=== PATIENT | female | born 1955 | race Caucasian/White ===

== ENCOUNTER 2018-11-16 22:38 | Observation (INO) ==
[2018-11-16 23:20] LABS: Basophils # (auto) 0.04 K/uL (0-0.2); Basophils % (auto) 0.4 %; Eosinophils # (auto) 0.27 K/uL (0-0.5); Eosinophils % (auto) 2.9 %; Hematocrit (blood only) 38.7 % (37-47); Immature Granulocytes # (auto) 0.01 K/uL (0.00-0.02); Immature Granulocytes % (auto) 0.1 %; Lymphocytes # (auto) 3.51 K/uL (1.2-3.4); Lymphocytes % (auto) 38.3 %; Mean Corpuscular Hgb Conc 33.6 g/dL (32-36); Mean Corpuscular Volume 89.2 fL (80-100); Mean Platelet Volume 9.4 fL (7.4-10.4); Monocytes # (auto) 0.63 K/uL (0.11-0.59); Monocytes % (auto) 6.9 %; Neutrophils # (auto) 4.71 K/uL (1.4-6.5); Neutrophils % (auto) 51.4 %; Platelet Count 397 K/uL (130-400); RDW Coefficient of Variation 13.5 % (11.5-14.5); RDW Standard Deviation 43.9 fL (36.4-46.3); Red Blood Count 4.34 M/uL (4.2-5.4); White Blood Count 9.17 K/uL (4.8-10.8)
[2018-11-16 23:38] LABS: Alanine Aminotransferase 19 U/L (12-78); Alkaline Phosphatase 100 U/L (45-117); Aspartate Aminotransferase 13 U/L (15-37); Bilirubin,Total 0.2 mg/dl (0.2-1); Blood Urea Nitrogen 22 mg/dl (7-18); Calcium 8.8 mg/dl (8.5-10.1); Carbon Dioxide 27 mmol/L (21-32); Chloride 105 mmol/L (98-107); Creatinine Clr Calc Pharmacy 96.8 ml/min; Est GFR (African American) 111.6; Est GFR (Non-African American) 96.3; Globulin 4.1 gm/dl (2.5-4.0); Glucose 111 mg/dl (70-99); Potassium 3.3 mmol/L (3.5-5.1); Sodium 142 mmol/L (136-145); Total Protein 8.1 gm/dl (6.4-8.2); Troponin I < 0.015 ng/ml (0-0.045)
[2018-11-17] MEDS ORDERED: OPTIRAY 320 125ml IV PRN (00:13)
[2018-11-17] MEDS ORDERED: NITROGLYCERIN 2% OINTMENT 30GM TUBE EXT ONE (00:55)
--- NOTE | 2018-11-17 01:59 | Emergency Department Note ---
Entered by Lois Montana acting as a scribe for Benedicto Manzo MD History of Present Illness General Chief complaint: Chest Pain Stated complaint: CHEST PAIN/NECK PAIN Source: patient History of Present Illness Provider complaint: chest pain Onset (ago): hour(s) 6 Location: chest Radiation: non-radiation Maximum Pain Intensity: 3 Quality: + other (heaviness and pressure) Associated symptoms: + shortness of breath and + other (+neck pain, +back pain) Treatments prior to arrival: aspirin (2 baby aspirin) The patient is a 62 year old female who presents to the Emergency Room with complaints of chest discomfort that started today at 1700. She notes that it feels like heaviness and pressure in the center of her chest. She reports that the pain is non-radiating. She states that she could feel her heart beating. The patient state that she had worsening shortness of breath today. She notes that she experiences shortness of breath and chest discomfort when she is walking or going up stairs. The patient reports that she has neck and back pain that started several days ago. She notes that she has burping more. She states that she has felt more flushed and warm today. She notes that both her parents had heart attacks in their 40s. She states that she has hypertension that she takes medication for. The patient states that she took 2 baby Aspirin today. Home Medications Home Medications Medication Instructions Recorded Confirmed Type aspirin 81 mg PO DAILY 11/17/18 11/17/18 History calcium carbonate 1,200 mg PO DAILY 11/17/18 11/17/18 History cholecalciferol (vitamin D3) 1,000 unit PO DAILY 11/17/18 11/17/18 History [Vitamin D3] losartan-hydrochlorothiazide 1 tab PO DAILY 11/17/18 11/17/18 History meloxicam 15 mg PO DAILY 11/17/18 11/17/18 History omega 4-bna-tve-fish oil [Fish Oil] 1 cap PO DAILY 11/17/18 11/17/18 History Allergies Allergy/AdvReac Type Severity Reaction Status Date / Time No Known Allergies Allergy Unverified 11/17/18 01:33 Past Med/Surg History Surgical History History of Rodrigo fundoplication Family History Other Myocardial infarction Social History Preferred Language: Croatian Feels Safe at Home: Yes Smoking Status: Never smoker Review of Systems See HPI for pertinent positives & negatives. and A total of 10 systems reviewed and were otherwise negative Physical Exam Vital Signs Vital Signs - 24 hr 11/16/18 22:52 11/16/18 23:12 11/17/18 00:11 Temperature 36.6 C Temperature Source Oral Sepsis Recent Fever Within 48 Hours No Sepsis New/Unexplained Change in Mental Status No Sepsis Action Taken by Nursing No Action Required Pulse Rate 76 Pulse Rate [Apical] 67 Respiratory Rate 18 18 Blood Pressure 188/105 H Blood Pressure [Right Arm] 158/93 H Blood Pressure Mean 132 Blood Pressure Mean [Right Arm] 114 Pulse Oximetry 96 95 95 Oxygen Delivery Method Room Air Room Air Room Air 11/17/18 01:38 11/17/18 02:03 Temperature Temperature Source Sepsis Recent Fever Within 48 Hours Sepsis New/Unexplained Change in Mental Status Sepsis Action Taken by Nursing Pulse Rate Pulse Rate [Apical] 70 Respiratory Rate 18 Blood Pressure Blood Pressure [Right Arm] 121/83 Blood Pressure Mean Blood Pressure Mean [Right Arm] 95 Pulse Oximetry 95 Oxygen Delivery Method Room Air Constitutional: Vital signs reviewed. Eyes: Pupils are equal round reactive to light. Conjunctiva are noninjected. ENT: Pharynx is clear without erythema or exudate. Mucous membranes are moist. Neck supple without meningeal signs. Respiratory: Clear to auscultation bilaterally. Breath sounds are equal bilaterally. Cardiovascular: Regular rate and rhythm. No rubs or gallops. GI: Soft, nondistended and nontender. Bowel sounds are present. Musculoskeletal: No peripheral edema. No lower extremity tenderness. Integumentary: No cyanosis. Neurological: The patient is awake and alert. No focal deficits. Psychiatric: Normal affect. Course 2300: The patient was evaluated in room A4B, and a complete history and physical examination were performed. 2354: I reevaluated the patient and updated her on her test results, I recommended a CT scan to rule out a PE or aortic dissection. 0054: I reevaluated the patient, she states that when she came back from the CAT scan she felt the heaviness in her chest, but it resolved shortly after. The patient is still hypertensive. I recommended hospitalization. 0127: I [facility] the [facility], will accept the patient for further evaluation. Consultations Consultation #1: [facility] Time: 01:27 Administered Medications Ioversol (Optiray 320 125ml) 125 ml IV ONCE PRN PRN Reason: Interaction Checking Stop: 11/21/18 00:12 Last Admin: 11/17/18 00:13 Dose: 99 ml Documented by: [id number] Discontinued Medications Nitroglycerin (Nitro-Bid 2%) 0.5 inch EXT NOW ONE Stop: 11/17/18 00:56 Last Admin: 11/17/18 01:18 Dose: 0.5 inch Documented by: [id number] Potassium Chloride (Klor-Con M20) 40 meq PO NOW STA Stop: 11/17/18 02:05 Last Admin: 11/17/18 02:06 Dose: 40 meq Documented by: [id number] Medical Decision Making Differential Diagnosis Differential diagnoses include unstable angina, MA, PE, aortic dissection, and GERD. Medical Records Attestation: I reviewed the patient's medical records. I did perform a limited focused review of portions of the patient's old chart on the electronic medical record. The patient has had no recent pertinent visits to this hospital. Home Medications Current Medication List: was personally reviewed by me Laboratory Data Attestation: I reviewed the patient's lab results. Result diagrams: 11/16/18 22:56 11/16/18 22:56 Lab Results 11/16/18 11/16/18 Range/Units 22:56 22:56 WBC 9.17 (4.8-10.8) K/uL RBC 4.34 (4.2-5.4) M/uL Hgb 13.0 (12.0-16.0) g/dL Hct 38.7 (37-47) % MCV 89.2 (80-100) fL MCH 30.0 (25-34) pg MCHC 33.6 (32-36) g/dL RDW Std Deviation 43.9 (36.4-46.3) fL RDW Coeff of Kip 13.5 (11.5-14.5) % Plt Count 397 (130-400) K/uL MPV 9.4 (7.4-10.4) fL Immature Gran % (Auto) 0.1 % Neut % (Auto) 51.4 % Lymph % (Auto) 38.3 % Gillespie % (Auto) 6.9 % Eos % (Auto) 2.9 % Baso % (Auto) 0.4 % Immature Gran # (Auto) 0.01 (0.00-0.02) K/uL Neut # (Auto) 4.71 (1.4-6.5) K/uL Lymph # (Auto) 3.51 H (1.2-3.4) K/uL Gillespie # (Auto) 0.63 H (0.11-0.59) K/uL Eos # (Auto) 0.27 (0-0.5) K/uL Baso # (Auto) 0.04 (0-0.2) K/uL Sodium 142 (136-145) mmol/L Potassium 3.3 L (3.5-5.1) mmol/L Chloride 105 (98-107) mmol/L Carbon Dioxide 27 (21-32) mmol/L Anion Gap 10.0 (3-11) BUN 22 H (7-18) mg/dl Creatinine 0.64 (0.6-1.2) mg/dl Est Cr Clr Drug Dosing 96.8 ml/min Est GFR ( Amer) 111.6 Est GFR (Non-Af Amer) 96.3 BUN/Creatinine Ratio 34.0 H (10-20) Glucose 111 H (70-99) mg/dl Calcium 8.8 (8.5-10.1) mg/dl Total Bilirubin 0.2 (0.2-1) mg/dl AST 13 L (15-37) U/L ALT 19 (12-78) U/L Alkaline Phosphatase 100 (45-117) U/L Troponin I < 0.015 (0-0.045) ng/ml Total Protein 8.1 (6.4-8.2) gm/dl Albumin 4.0 (3.4-5.0) gm/dl Globulin 4.1 H (2.5-4.0) gm/dl Albumin/Globulin Ratio 1.0 (0.9-2) Lipase 262 (73-393) U/L Specimen Hemolysis Imaging Data Attestation: I personally reviewed and interpreted this imaging study as follows: My Impression: Chest XRay: Widening mediastinum and no infiltrate Radiologist's Impression: Radiology results as stated below per my review and the radiologist's interpretation: CTA CHEST: No evidence of acute pulmonary embolism. Thoracic aorta and main pulmonary artery are normal in caliber. Mild cardiomegaly. No pericardial effusion. No adenopathy. No airspace consolidation, pleural effusion, or pneumothorax. Small paraesophageal hernia versus Rodrigo fundoplication, correlate with operative history. No acute osseous findings. Radiologist: Nathaly Ortiz M.D. Study ready at 00:09 and initial results transmitted at 00:49 ECG Data Attestation: I personally reviewed and interpreted this ECG as follows: Indication: chest pain Rate (beats per minute): 74 Rhythm: normal sinus Findings: no PVC and no ST elevation Blood Pressure Blood Pressure Findings: Elevated blood pressure Blood Pressure Disposition: further management by hospitalist [facility] Narrative I did evaluate the patient as noted above. The patient is presenting with exertional chest pain with shortness of breath. She also complains some back and neck pain. She is currently not having any chest discomfort. She did take 2 baby aspirins prior to arrival. IV access was established. The patient was placed on a continuous shelter monitor. I did order and personally review the patient's 12-lead EKG as described above. Her twelve-lead EKG does not demonstrate any acute ischemic changes. I did order and personally reviewed the images of the patient's chest x-ray as described above. She does appear to have a widened mediastinum and per my interpretation. No infiltrates are noted. I did order and review the patient's blood work as noted in the electronic medical record. Troponin is negative. She has mild hypokalemia. Because of her wide mediastinum I did recommend a CT of the chest. She was agreeable to this. I did order a CT of the chest. I did review the images myself as well as the radiology report as described above. There is no evidence of PE or aortic dissection. I did reassess the patient. She did state that she developed some chest discomfort when she came back from CT but now feels better. She was given nitroglycerin paste. I did recommend hospitalization for further evaluation especially given her family history of heart disease and the description of her symptoms. I did discuss case with the hospitalist and case picker. Impression & Plan Exertional chest pain, Hypokalemia Discharge Plan Visit Data Chief Complaint: Chest Pain Stated Complaint: CHEST PAIN/NECK PAIN ED Provider: Benedicto Manzo Discharge Problem: Exertional chest pain, Hypokalemia Patient Disposition: Being Evaluated by Hospitalist Forms Stand Alone Forms: Call Back Authorization, My [facility] Prescriptions Prescriptions: No Action meloxicam 15 mg tablet 15 mg PO DAILY RF: 0 losartan-hydrochlorothiazide 100-25 mg tablet 1 tab PO DAILY RF: 0 aspirin 81 mg Tablet,Delayed Release (Dr/Ec) 81 mg PO DAILY RF: 0 cholecalciferol (vitamin D3) [Vitamin D3] 1,000 unit Tablet 1,000 unit PO DAILY RF: 0 omega 6-dhj-lfs-fish oil [Fish Oil] 1,000 mg (120 mg-180 mg) Capsule 1 cap PO DAILY RF: 0 calcium carbonate 600 mg calcium (1,500 mg) Tablet 1,200 mg PO DAILY RF: 0 Referrals Referrals: Farhad White [Other] The scribe's documentation has been prepared under my direction and personally reviewed by me in its entirety. I confirm that the note above accurately reflects all work, treatment, procedures, and medical decision making performed by me.
--- NOTE | 2018-11-17 02:03 | History & Physical Report ---
Date of Service November 17, 2018 Assessment & Plan (1) Chest pain: 62-year-old female with a history of hypertension and family history positive for coronary artery disease presents with chest pain, back and neck pain. Chest pain/ACS rule out Admit for observation to telemetry EKG showed normal sinus rhythm, no acute changes Troponin was negative, continue to trend Continue aspirin, continue losartan/hydrochlorothiazide Repeat EKG with chest pain Hypokalemia Replete, check mag DVT prophylaxis SCDs/ambulation (2) HTN (hypertension): History of Present Illness Primary Care Provider: Farhad White 62-year-old female with past medical history of hypertension presents with feelings of chest pressure, back pain and neck pain throughout the day today. Patient states that the symptoms have been intermittent. She is unsure if they are made worse with exertion, but she does describe feeling dyspneic with exertion. She describes the chest pain as pressure with heart fluttering. She has family history of an AL in her mother and father. Patient is a non-smoker, she is not a diabetic. She denies any recent cold symptoms, nausea/vomiting/diarrhea. She denies any hemoptysis or cough. She has no history of DVT. Allergies Allergy/AdvReac Type Severity Reaction Status Date / Time No Known Allergies Allergy Unverified 11/17/18 01:33 Home Medications Home Medications Medication Instructions Recorded Confirmed Type aspirin 81 mg PO DAILY 11/17/18 11/17/18 History calcium carbonate 1,200 mg PO DAILY 11/17/18 11/17/18 History cholecalciferol (vitamin D3) 1,000 unit PO DAILY 11/17/18 11/17/18 History [Vitamin D3] losartan-hydrochlorothiazide 1 tab PO DAILY 11/17/18 11/17/18 History meloxicam 15 mg PO DAILY 11/17/18 11/17/18 History omega 0-rlq-nba-fish oil [Fish Oil] 1 cap PO DAILY 11/17/18 11/17/18 History Past Med/Surg History Surgical History History of Rodrigo fundoplication Family History Other Myocardial infarction Social History Preferred Language: Amharic Feels Safe at Home: Yes Smoking Status: Never smoker Review of Systems Review of Systems: All systems reviewed & are unremarkable except as noted in HPI & below Physical Exam Constitutional: WD/WN, vitals as above Eyes: PERRL, conjunctivae normal, anicteric sclerae ENMT: external ear and nose normal, oropharynx normal Neck: trachea midline, no thyromegaly Respiratory: normal respiratory effort, lungs clear to auscultation Cardiovascular: RRR, no murmur, no edema Gastrointestinal (Abdomen): normal bowel sounds, soft, nontender, no hepatosplenomegaly Musculoskeletal: no cyanosis or clubbing, extremities motor strength 5/5 Skin: no rashes, warm and dry Neurologic: PERRL, EOMI, accommodation nl, no face palsy, no dysarthria Psychiatric: A+Ox3, euthymic affect Results & Data Vital Signs (Past 12 Hours) Vital Signs Temp Pulse Pulse Resp BP BP Pulse Ox 11/17/18 01:38 70 18 121/83 11/17/18 00:11 67 18 158/93 H 95 11/16/18 23:12 95 11/16/18 22:52 36.6 C 76 18 188/105 H 96 Supervising Physician Co-Signing Physician Notes Attending addendum: I have physically seen this patient, have supervised the medical residents activities, and agree with the H&P unless as otherwise noted. Assessment and Plan: Exertional chest pain/hypertension/family history of CAD/obesity- The patient will be admitted to telemetry for serial cardiac enzymes, serial EKG's, cardiac rhythm monitoring and a 2-D echocardiogram with Dopplers. Continue aspirin 81 mg daily and losartan/HCTZ daily. Add Klor-Con for potassium 3.3. Check a magnesium level. Chest x-ray negative. CTA chest negative for acute process, but suggestion of possible paraesophageal hernia. Hold meloxicam and fish oil for now. Remainder orders and notations as noted. PG Care Time/CCT Total # of Minutes Spent Total Time Spent with Patient: Total time spent is greater than 50% in coordination of care (as documented) at patient's floor/unit and/or counseling patient: Resident Activity Tracking Resident Involvement: Resident Care Provided Care Provided: Adult Hospital Medicine
[2018-11-17] MEDS ORDERED: POTASSIUM CHLORIDE 20 MEQ TABCR PO STA (02:04)
[2018-11-17 02:20] LABS: Magnesium 2.4 mg/dl (1.8-2.4)
[2018-11-17] MEDS ORDERED: ACETAMINOPHEN 325 MG TAB PO PRN (05:18)
[2018-11-17] MEDS ORDERED: ACETAMINOPHEN 325 MG TAB ONE (05:25)
--- NOTE | 2018-11-17 06:36 | XRay Report ---
XR chest 1V portable HISTORY: 62 years-old Female Chest Pain acute atypical chest pain COMPARISON: CTA of the chest of same day TECHNIQUE: A portable AP view of the chest FINDINGS: Cardiac silhouette is enlarged. Poorly marginated right paratracheal opacity correlates with normal v ascular structures as seen on CTA of the chest of same day. Heart is mildly enlarged. Moderate hiatal hernia. No pneumothorax, pleural effusion, focal airspace consolidation or overt pulmonary edema. Ri ght shoulder rotator cuff calcific tendinosis. Mild degenerative changes of the shoulders and spine. The bones appear grossly intact. IMPRESSION: Mild cardiomegaly without acute process. The above report was generated using voice recognition software. It may contain grammatical, syntax o r spelling errors. Electronically signed by: Sal Vazquez M.D. 11/17/2018 6:35 AM
--- NOTE | 2018-11-17 07:14 | CT Scan Report ---
CHEST CTA for PULMONARY ARTERIES CT DOSE: 350.84 mGy.cm HISTORY: Atypical chest pain. cp eval for PE TECHNIQUE: Multiaxial CT images of the chest were performed following the intravenous administration of contrast to evaluate the pulmonary arteries. Maximal intensity projection images were also obtaine d. A dose lowering technique was utilized adhering to the principles of ALARA. COMPARISON STUDY: None. FINDINGS: Normal caliber thoracic aorta with no evidence for dissection. The heart is mildly enlarged . No pleural or pericardial effusions. Moderate hiatus hernia. No filling defects within the pulmonar y arteries to suggest pulmonary embolus. The visualized liver, spleen, and adrenal glands are unremar kable. There is a 3.5 cm right isthmic thyroid nodule. No mediastinal or hilar lymphadenopathy. No goff spicious lytic or blastic osseous lesions. No pneumothorax. The central airways are patent. Groundgla ss densities at the lung bases favor mild dependent change. Otherwise, no focal lung consolidations t o suggest pneumonia. Small fat-containing right-sided Bochdalek hernia. IMPRESSION: 1. No evidence for pulmonary embolus. 2. Mild cardiomegaly. 3. Moderate hiatus hernia. This may represent a paraesophageal hernia. Electronically signed by: Tray Acevedo M.D. 11/17/2018 7:12 AM
[2018-11-17 08:18] LABS: Hematocrit (blood only) 37.2 % (37-47); Hemoglobin 12.1 g/dL (12.0-16.0); Mean Corpuscular Hgb Conc 32.5 g/dL (32-36); Mean Corpuscular Volume 90.3 fL (80-100); Mean Platelet Volume 9.1 fL (7.4-10.4); Platelet Count 385 K/uL (130-400); RDW Coefficient of Variation 13.5 % (11.5-14.5); RDW Standard Deviation 44.7 fL (36.4-46.3); Red Blood Count 4.12 M/uL (4.2-5.4); White Blood Count 8.15 K/uL (4.8-10.8)
[2018-11-17 08:27] LABS: BUN Creatinine Ratio 25.8 (10-20); Creatinine Clr Calc Pharmacy 95.2 ml/min; Est GFR (African American) 111.6; Est GFR (Non-African American) 96.3; Magnesium 2.3 mg/dl (1.8-2.4); Potassium 3.9 mmol/L (3.5-5.1)
[2018-11-17] MEDS ORDERED: ASPIRIN 81 MG ECTAB PO SCH (09:00)
[2018-11-17] MEDS ORDERED: LOSARTAN/HCTZ 50/12.5MG TAB PO SCH (09:00)
[2018-11-17] MEDS ORDERED: PERFLUTREN LIPID MICROSPHERE (DEFINITY) IV ONE (11:41)
[2018-11-17] MEDS ORDERED: ALUMINUM/MAGNESIUM SUSP 18 ML, LIDOCAINE HCL VISCOUS 2% 6 ML, BARCODE IDENTIFIER 1 EA PO ONE (12:08)
[2018-11-17] MEDS ORDERED: PANTOprazole 40 MG TAB PO SCH (12:30)
--- NOTE | 2018-11-17 17:13 | Discharge Summary ---
Date of Service November 17, 2018 Admission HPI Per Admitting Provider 62-year-old female with past medical history of hypertension presents with feelings of chest pressure, back pain and neck pain throughout the day today. Patient states that the symptoms have been intermittent. She is unsure if they are made worse with exertion, but she does describe feeling dyspneic with exertion. She describes the chest pain as pressure with heart fluttering. She has family history of an MD in her mother and father. Patient is a non-smoker, she is not a diabetic. She denies any recent cold symptoms, nausea/vomiting/diarrhea. She denies any hemoptysis or cough. She has no history of DVT. Admission Exam Per Admitting Provider Constitutional: WD/WN, vitals as above Eyes: PERRL, conjunctivae normal, anicteric sclerae ENMT: external ear and nose normal, oropharynx normal Neck: trachea midline, no thyromegaly Respiratory: normal respiratory effort, lungs clear to auscultation Cardiovascular: RRR, no murmur, no edema Gastrointestinal (Abdomen): normal bowel sounds, soft, nontender, no hepatosplenomegaly Musculoskeletal: no cyanosis or clubbing, extremities motor strength 5/5 Skin: no rashes, warm and dry Neurologic: PERRL, EOMI, accommodation nl, no face palsy, no dysarthria Psychiatric: A+Ox3, euthymic affect Principal Diagnosis Chest Pain-noncardiac Discharge Exam General: Resting comfortably in no apparent distress; A&OX3 HEENT: NC/AT; PERRLA with EOMI; Jovista conjunctiva, MMM. No erythema of posterior pharynx Neck: Supple and nontender Cardiac: RRR Lungs: CTA bilaterally Abdomen: Bowel normoactive X 4; Nontender to palpation Extremities: Warm. No edema present Neuro: No focal weakness Skin: No rash Discharge Data Allergies Allergy/AdvReac Type Severity Reaction Status Date / Time No Known Allergies Allergy Unverified 11/17/18 01:33 Consultations 11/17/18 00:55 ED Decision to Admit Stat Ordered Studies 11/16/18 23:47 CT angio chest PE protocol Urgent CXR Hospital Course (1) Chest pain: Presented with chest pain, unclear etiology. EKG x 2 and Trop x 3 were negative. CTA showed no PE, mild cardiomegaly and moderate hiatal hernia. Stress echo on 11/17 was negative for ischemia. Received ASA 81 mg during this admission, will d/c at discharge. Chest pain was improved with GI cocktail; also started Protonix 40 mg daily. Consider starting low dose SSRI for anxiety -- may also be contributing to symptoms. F/u with GI for work up -- h/o Rodrigo fundoplication surgery; d/c Aspirin and NSAIDs at discharge. -May need EGD (2) HTN (hypertension): Blood pressures were elevated upon admission but may have been related to anxiety over chest pain, however alternatively, perhaps high blood pressures caused chest pain -Blood pressures improved with nitroglycerin given in the ER and then remained stable -Continued home Losartan/HCTZ as prescribed. (3) History of Rodrigo fundoplication: Follows with GI physician in [place]. Surgery was performed in the late at [facility] by Dr. Guevara CTA showed moderate hiatal hernia. Pt. did complain of mild issues swallowing -- is overdue to routine evaluation. Encouraged her to follow up with GI in 1-2 weeks. Started PPI daily. (4) Hypokalemia: Replaced (5) Thyroid nodule: Noted on CTA of chest to be fairly large at 3.5 cm in the isthmus TSH level ordered just prior to discharge but pending at the time of discharge F/u with PCP to discuss further evaluation. May need ultrasound-guided biopsy (6) History of esophageal stricture: With history of esophageal dilations most recently 2 years ago Given recurrence of possible GERD-like symptoms that brought her to the hospital with esophageal spasm likely -Advise close follow-up with GI-this is been arranged for her Stable for discharge to home Total Time Total Time Spent Total Time Spent (In Minutes): >30 minutes Total Time Includes: Examination of the Patient, Discharge Planning, Medication Reconciliation, Communication With Other Providers and Other Discharge Plan Discharge Items Patient Disposition: Home - Self-Care Reason For Visit: CHEST PAIN Discharge Diagnosis: Chest Pain Condition: Good Discharge Goals: Improve disease control, Improve function, Increase independence, Improve nutritional status and Prevent disease Activity: As commented below Exercise/Sports: Wait until after follow-up appointment Non-emergency contact: Primary Care Provider and Receiving Associate Call non-emergency contact if: you have any medication questions, your symptoms worsen, your pain is not controlled, your pain is worsening, your pain is unusual for you, your pain is concerning for you and you have a fever Follow-up/Referrals: Farhad White [Primary Care Provider] - 11/20/18 8:40 am (Please, follow up at Dr. White's office with his dietetic assistant, Alexis Watts PA-C, on November 20 at 8:40 am. *If you need to change this appointment, call their office at [phone].) Zana Brower, DO [Outside Practitioners] - (Please, follow up at Dr. Brower's office. *A nurse from this office is to call you with the appointment information. If you have any questions, call their office at [phone].) Diet: Heart Healthy Addtl Provider Instructions: 1. Chest Pain * Stress echocardiogram was negative for ischemia/heart disease. * Please continue Protonix 40 mg daily for acid reflux related symptoms and follow up with your GI doctor. * Please follow up with your primary care provider to discuss starting a low dose SSRI for anxiety related symptoms. 2. History of Jose Fundoplication * Please schedule a follow up with your GI physician to discuss issues swallowing/routine evaluation. 3. Thyroid Nodule * A 3.5 cm right thyroid nodule was noted on CT of the chest/neck. * TSH level is pending. * Please follow up with your PCP to discuss further evaluation. 4. Please follow up with your primary care provider in 7-10 days to discuss this hospital admission. Prescriptions: New pantoprazole 40 mg Tablet,Delayed Release (Dr/Ec) 40 mg PO QAM 30 Days Qty: 30 RF: 2 acetaminophen 500 mg capsule 1,000 mg PO Q8H PRN (Reason: arthritis pain) Qty: 30 RF: 0 Continued losartan-hydrochlorothiazide 100-25 mg tablet 1 tab PO DAILY RF: 0 cholecalciferol (vitamin D3) [Vitamin D3] 1,000 unit Tablet 1,000 unit PO DAILY RF: 0 omega 3-swh-bcw-fish oil [Fish Oil] 1,000 mg (120 mg-180 mg) Capsule 1 cap PO DAILY RF: 0 calcium carbonate 600 mg calcium (1,500 mg) Tablet 1,200 mg PO DAILY RF: 0 Discontinued meloxicam 15 mg tablet 15 mg PO DAILY RF: 0 aspirin 81 mg Tablet,Delayed Release (Dr/Ec) 81 mg PO DAILY RF: 0 Stand-Alone Forms: Call Back Authorization, My [facility] Discharge Orders: Discharge Order (Routine); Ordered 11/17/18 Ordered By: Alicia Gaming Admission Data Admit Date/Time: 11/17/18 01:53 Attending Provider: Alicia Gaming Admit Provider: Chandrakant Quiroz Primary Care Provider: Farhad White Other Providers: Quincy Almaguer Service: Telemetry Medical Other Interventions: Discharge Summary Assessment (RN) Last Done: 11/17/18 16:43 Pending Studies at Discharge: Yes Studies:: TSH level. DC Date/Time DO NOT enter until pt leaves facility: 11/17/18 17:20 Supervising Physician Co-Signing Physician Notes PA Supervision Note: I personally saw and examined the patient. I verified all thomson points and agree with DAWSON Valencia with the following exceptions and/or additions: Patient presented with substernal chest pressure that lasted for many hours constantly prior to arrival. She then reported the pain felt more like a burning throughout the day today and was then relieved with a GI cocktail. She reports eating pizza and chocolate ice cream last night around the time the pain started. She was belching a lot more than usual and reports that she has been belching in the last couple of years whereas she did not belch at all after her Rodrigo fundoplication for many years. She has been told that her Rodrigo has loosened. She is also had a history of esophageal dilatation in the past but denies odynophagia or dysphagia except her daughter does report that she had pills get stuck yesterday. Her symptoms here were relieved with a GI cocktail She ruled out for acute coronary syndrome and had a negative maximum stress test. Vitals reviewed Gen: AAOx3, NAD HEENT: Anicteric sclerae, EOMI CV: RRR no mgr nl S1S2 Pulm: CTAB no wcr Abd: +BS soft NT ND no masses or hernias Ext: No edema, 2+ DP pulses Skin: No rashes, warm/dry Neuro: Full strength throughout 62-year-old female with a history of GERD and Rodrigo fundoplication, HTN, here with noncardiac chest pain. Likely GI in nature as above -Started on PPI and had improvement -Recommend close follow-up with GI after discharge, may need outpatient EGD TSH pending at time of discharge due to large thyroid nodule-should follow-up on this with PCP and may need ultrasound-guided biopsy Stable for discharge to home
== END 2018-11-17 17:20 | disposition home or self-care (01) ==
LOC: 2W 22:38 → ED 22:38 → SUATTDRO 11-17 01:53 → 2W 11-17 04:41